=== PATIENT | male | born 1960 | race Caucasian/White ===

== ENCOUNTER 2017-08-31 13:21 | Inpatient (IN) | payer OTHER ==
[~2017-08-31] VITALS: Ht 157.5 cm; Wt 95.3 kg
[2017-09-24] MEDS ORDERED: VERAPAMIL ER240 MG PO (14:05)
[2017-09-24] MEDS ORDERED: [UNRECOGNIZED DRUG - OTHER] PO (14:06)
[2017-09-24] MEDS ORDERED: CLONAZEPAM1 MG PO (14:06)
[2017-10-10] MEDS ORDERED: ULTRACET PO (08:17)
[2017-10-10] MEDS ORDERED: Intestinex CAP PO (08:17)
== END 2017-10-10 10:46 | disposition home or self-care (01) | DRG 330 ==
LOC: O/R 10-01 05:28 → SURH 10-01 05:28
PROVIDERS: Surgery
PROC: 0DJD8ZZ Inspection of Lower Intestinal Tract, Via Natural or Artificial Opening Endoscopic (ICD-10-PCS; 2017-10-01)
PROC: 4A033R1 Measurement of Arterial Saturation, Peripheral, Percutaneous Approach (ICD-10-PCS; 2017-10-01)
PROC: 4A12X4Z Monitoring of Cardiac Electrical Activity, External Approach (ICD-10-PCS; 2017-10-01)
PROC: 0DTN4ZZ Resection of Sigmoid Colon, Percutaneous Endoscopic Approach (ICD-10-PCS; principal; 2017-10-01 11:00)
PROC: 02HV33Z Insertion of Infusion Device into Superior Vena Cava, Percutaneous Approach (ICD-10-PCS; 2017-10-03)
PROC: 3E0336Z Introduction of Nutritional Substance into Peripheral Vein, Percutaneous Approach (ICD-10-PCS; 2017-10-03)
PROC: BW21Y0Z Computerized Tomography (CT Scan) of Abdomen and Pelvis using Other Contrast, Unenhanced and Enhanced (ICD-10-PCS; 2017-10-09)
DX: K57.20 Diverticulitis of large intestine with perforation and abscess without bleeding (principal); J95.89 Other postprocedural complications and disorders of respiratory system, not elsewhere classified; J98.11 Atelectasis; G47.33 Obstructive sleep apnea (adult) (pediatric); I11.9 Hypertensive heart disease without heart failure; E66.01 Morbid (severe) obesity due to excess calories; R73.01 Impaired fasting glucose; R50.82 Postprocedural fever

== ENCOUNTER 2020-03-09 07:30 | Day surgery (SDC) | payer OTHER ==
[~2020-03-09 07:30] MED LIST: CLONAZEPAM1 MG PO; Intestinex CAP PO; ULTRACET PO; VERAPAMIL ER240 MG PO; [UNRECOGNIZED DRUG - OTHER] PO
== END 2020-03-09 11:42 | disposition home or self-care (01) ==
LOC: AMB-ENDOS 07:30
PROVIDERS: ATTEND Surgery
DX: K62.89 Other specified diseases of anus and rectum (principal); K64.8 Other hemorrhoids; Z20.828 Contact with and (suspected) exposure to other viral communicable diseases